=== PATIENT | male | born 1985 | race Caucasian/White ===

== ENCOUNTER → 2017-01-07 | Outpatient (CLI) | payer OTHER ==
--- NOTE | 2017-01-07 14:40 | Diagnostic Imaging Report ---
EXAMINATION: CT abdomen and pelvis without contrast dated 01/07/2017. TECHNIQUE: Multiple contiguous axial images were obtained through the abdomen and pelvis without the use of intravenous contrast. INDICATION: Left flank pain, left testicular pain and hematuria. FINDINGS: Axial imaging of the abdomen and pelvis without contrast. There is a moderate left hydroureteronephrosis. There is a stone in the distal left ureter proximal to the UVJ. It measures 5.7 mm in size. There are several nonobstructive stones otherwise noted within the left kidney. The right kidney may contain a few punctate stones inferiorly. No hydronephrosis or obstructive stones are seen. The remaining nonopacified abdominal viscera limited in evaluation due to the lack of contrast. The liver, the spleen, as well the gallbladder, adrenal glands, and pancreas demonstrate no evidence for acute disease. There is no ascites, lymphadenopathy, or free air within the abdomen or pelvis. There is no inflammatory change about the bowel loops. Appendix is unremarkable. Scattered prominent but nonenlarged lymph nodes noted in the groin bilaterally right greater than left. Pars defect on the left at the L5 level with a possible early incomplete pars defect on the right at the same level. The remaining osseous structures are unremarkable. IMPRESSION: 1. Stone in the distal left ureter but proximal to the UVJ causing moderate left hydroureteronephrosis as described above. Other nonobstructive stones bilaterally within the kidneys also noted. 2. Pars defect on the left at the L5 level with a possible early incomplete pars defect on the right at the same level. Report was called and faxed to office of TAI Ruff, @ 2:38 PM/abby. Dictated by: Dictated on workstation # [id number]
== END ==
LOC: RAD 13:43
PROVIDERS: ATTEND Physician Assistant
DX: R31.9 Hematuria, unspecified (principal); N20.2 Calculus of kidney with calculus of ureter
CPT/HCPCS: 74176

== ENCOUNTER → 2017-01-07 | Outpatient (CLI) | payer OTHER ==
[2017-01-07 16:34] VITALS: BP 141/85
--- NOTE | 2017-01-07 16:34 | Urgent Care T Sheet Gen (E) ---
Intake General Temperature (Fahrenheit): 98.4 Pulse: 70 Blood Pressure Systolic: 141 Blood Pressure Diastolic: 85 Respirations: 20 SPO2: 100 Description of Symptoms Patient presents with possible kidney stone. No previous history. States that at approx 12:30 this afternoon, he noticed a sharp stabbing pain in the L flank. Pain radiates into the L groin and testicle. No fever. No blood in the urine. Didn't take any meds, just came here immediately. Respiratory Constitutional Symptoms: No syptoms reported EENTM: No symptoms reported Respiratory: No symptoms reported Cardiovascular: No symptoms reported Musculoskeletal: Back pain (L flank pain) All Other Systems Reviewed Remaining Systems: All other systems reviewed with negative findings Physical Exam Physical Exam General Appearance: WD/WN Mild distress (patient is pacing. doesn't want to sit down.) Respiratory Exam: Lungs clear Normal breath sounds Cardiovascular Exam: Regular rate, rhythm Back Exam: CVA tenderness (L) Skin Exam: Diaphoresis Progress/Orders Progress Note: Progress Note CT of abd/pelvis without contrast shows: stone in the distal L ureter but proximal to the UVJ causing moderate L hydroureteronephrosis. Stone is 5.7mm in size. Other non obstructive stones bilaterally within the kidneys. Medications Administered Medications Adminstered: Toradol IM (60mg/2ml IM injection into R gluteal. Lot [id number] Exp 10/2017) Departure Urgent Care Impression Impression: Primary Impression: Kidney stone on left side Departure Disposition: 01 HOME OR SELF-CARE Condition: Stable Referrals: Nella Jamison (PCP) Additional Instructions: The stone is less than 10mm which would require urology referral. The stone is just about to the bladder. The Toradol shot should last for a few more hours. I have prescribed Tramadol 50mg 1-2 tabs po q 4-6 hrs prn severe pain #20 May supplement with Ibuprofen 800mg TID however hold off until later this evening due to Toradol shot Strain urine to confirm stone passage Present to ER if symptoms worsen or change Patient understands DC instructions. All questions were answered. End of report . MYRA DIXON January 07, 2017 15:34
== END ==
LOC: MHUC 13:03
PROVIDERS: ATTEND Physician Assistant
DX: N20.0 Calculus of kidney (principal)
CPT/HCPCS: 99214